=== PATIENT | male | born 2000 | race Caucasian/White ===

== ENCOUNTER → 2021-11-25 | Day surgery (SDC) | payer BC ==
[2021-11-18 16:31] LABS: BASOPHILS % (AUTO) 0.8 % (0-1); EOSINOPHILS # (AUTO) 0.2 X10'3 (0-0.9); EOSINOPHILS % (AUTO) 3.1 % (0-6); LYMPHOCYTES # (AUTO) 1.9 X10'3 (1.1-4.8); LYMPHOCYTES % (AUTO) 37.4 % (21-51); MEAN CORPUSCULAR HEMOGLOBIN 29.9 PG (27.0-31.0); MEAN CORPUSCULAR HGB CONC 34.4 g/dL (33.0-36.5); MEAN CORPUSCULAR VOLUME 86.8 FL (78-98); MEAN PLATELET VOLUME 8.9 FL (7.4-10.4); MONOCYTES # (AUTO) 0.4 X10'3 (0-0.9); MONOCYTES % (AUTO) 8.4 % (2-12); NEUTROPHILS # (AUTO) 2.6 X10'3 (1.8-7.7); NEUTROPHILS % (AUTO) 50.3 % (42-75); PRE OP HEMATOCRIT 43.8 % (42.0-52.0); PRE OP HEMOGLOBIN 15.1 g/dL (14.0-17.9); PRE OP PLATELET COUNT 210 X10'3 (140-440); RED BLOOD COUNT 5.05 X10'6 (4.70-6.10); RED CELL DISTRIBUTION WIDTH 12.8 % (11.5-14.5)
[2021-11-18 16:39] LABS: PRE OP PROTIME 10.5 SECONDS (9.0-12.0)
[2021-11-18 16:42] LABS: ALBUMIN 4.2 G/DL (3.4-5.0); ALBUMIN/GLOBULIN RATIO 1.3 (1.1-1.5); ALKALINE PHOSPHATASE 63 IU/L (46-116); BLOOD UREA NITROGEN 11 MG/DL (7-18); BUN/CREATININE RATIO 11.3 (5.4-32.0); CALCIUM 9.2 MG/DL (8.5-10.1); CHLORIDE 105 MMOL/L (99-107); CREATININE 0.97 MG/DL (0.60-1.10); PRE OP ANION GAP 10 (8-16); PRE OP AST 42 U/L (10-37); PRE OP BILIRUB, TOTAL 0.7 MG/DL (0.0-1.0); PRE OP GLUCOSE 84 MG/DL (70-104); PRE OP POTASSIUM 3.5 MMOL/L (3.4-5.1); PRE OP SODIUM 143 MMOL/L (135-145); TOTAL CARBON DIOXIDE 28.5 MMOL/L (24-32); TOTAL PROTEIN 7.5 G/DL (6.4-8.2); eGFR > 90 ML/MIN
[2021-11-18 16:44] LABS: PRE OP ALT 96 U/L (30-65)
[~2021-11-25] VITALS: Ht 182.9 cm; Wt 113.9 kg
[2021-11-25] VITALS (13 sets, daily range): BP systolic 140–167; BP diastolic 87–111
[~2021-11-25] MED LIST: FLUT15.87; LIDOcaine 0.5% W/epiNEPHrine 1:200,000 50ml vial IJ ONE; LIDOcaine 2% (20mg/ml) 5ml vial ONE; MONT-40 PO; cocaine 4% topical solution 4ml bottle ONE; dexamethasone sod phosphate 4mg/ml inj. ONE; diazepam 5mg tablet PO PRN; famotidine 20mg tablet PO ONE; fentaNYL /PF 50mcg/ml 5ml ampule ONE; meperidine/PF 25mg/ml syringe IV PRN; methylPREDNISolone acetate 80mg/ml inj**IM only ONE; midazolam 1 mg/ML 2ml injection ONE; morphine 2 MG/ML inj. syringe IV PRN; mupirocin 2% ointment 22GM ONE; ondansetron/PF 4mg/2ml inj IV PRN; ondansetron/PF 4mg/2ml inj ONE; oxymetazoline 15 ML nasal spray NS ONE; oxymetazoline 15 ML nasal spray NS SCH; proCHLORperazine 10 MG/2 ml inj IV PRN; propofol inj 20 ML IV ONE; ringers solution, lacted 1,000 ML IV SCH
--- NOTE | 2021-11-25 10:40 | NUR ---
Received from OR via [facility] , accompanied by Anesthesiologist DR DUPONT and report given by Anesthesiolgist. PATIENT ON MASK AT 10 LITERS. LMA INSERTED. NOSE PACKING IN PLACE. DROWSY, RESPONSIVE WITH STILI. [address] PER DR DRISCOLL TILT HEAD AND DO NOT PULL PACKING FOR 60 MINUTES. Addendum: 11/25/21 at 1055 by Rowan Alcantara RN Amended: Links added.
[2021-11-25] MEDS: morphine 4 MG/ML inj SYRINge IV PRN ×2 (11:01→11:27)
--- NOTE | 2021-11-25 12:30 | NUR ---
PATIENT MEETS DISCHARGE CRITERIA. VSS. IV DC'D NO COMPLICATIONS. EDUCATED PATIENT AND ON DOCTORS DISCHARGE ORDERS. PATIENT VERBALIZED AN UNDERSTANDING. WHEELED PATIENT TO THE PARKING LOT WHERE HIS MOTHER MET HIM. PATIENT HAD HIS PHONE IN HIS POCKET AND GLASSES IN THE GO HOME BAG WITH HIS CLOTHES. GAVE PATIENT A COPY OF ALL ORDERS AND WENT OVER THEM AGAIN WITH HIM AT THE CAR. Addendum: 11/25/21 at 1247 by Rowan Alcantara RN Amended: Links added.
== END | disposition home or self-care (01) ==
LOC: PAS 05:59
PROVIDERS: ATTEND Otolaryngology
DX: J34.2 Deviated nasal septum (principal); J34.3 Hypertrophy of nasal turbinates; J32.8 Other chronic sinusitis; J45.909 Unspecified asthma, uncomplicated; E66.01 Morbid (severe) obesity due to excess calories; Z68.34 Body mass index [BMI] 34.0-34.9, adult; Z98.890 Other specified postprocedural states; Z79.899 Other long term (current) drug therapy; Z79.01 Long term (current) use of anticoagulants; Z20.822 Contact with and (suspected) exposure to COVID-19
CPT/HCPCS: 30140; 30520; 31254; 31267; 36415; 61782; 80053; 82948; 85025; 85576; 85610; 85730; 87635; A6402; C9250; C9803; J1040; J1100; J2175; J2250; J2270; J2405; J2704; J3010; J3490; J7030; J7040; J7120; U0003; U0005; Z7506; Z7508; Z7512; A4618; A7000